=== PATIENT | female | born 2000 | race Caucasian/White ===

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

== ENCOUNTER 2021-06-02 13:58 | Emergency (ER) | payer OTHER ==
[~2021-06-02] VITALS: Ht 154.9 cm; Wt 80.0 kg
[2021-06-02 14:21] VITALS: BP 115/73
[2021-06-02] MEDS ORDERED: predniSONE 20 MG TABLET PO ONE (15:00)
--- NOTE | 2021-06-02 15:14 | PHYS DOC ---
Past History Past Medical History: No Pertinent History, Other Additional Past Medical Histor: 1 [facility] Past Surgical History: No Surgical History Alcohol Use: None General Adult EDM: Chief Complaint: SKIN RASH/ABSCESS HPI: HPI: Patient is a 21-year-old female who presents with itchy rash on her BIlateral forearms, bilateral thighs. Patient states she is been dog sitting and she is afraid the dog has some type of mite. Patient denies pain. States that no one else in the home has a rash. Denies taking anything for symptoms before arrival. Denies medical history. Review of Systems: Review of Systems: Constitutional: Denies fever or chills Eyes: Denies change in visual acuity HENT: Denies nasal congestion or sore throat Respiratory: Denies cough or shortness of breath Cardiovascular: Denies chest pain or edema GI: Denies abdominal pain, nausea, vomiting, bloody stools or diarrhea : Denies dysuria Musculoskeletal: Denies back pain or joint pain Integument: Reports itchy rash to bilateral forearms and bilateral thighs Neurologic: Denies headache, focal weakness or sensory changes Endocrine: Denies polyuria or polydipsia Lymphatic: Denies swollen glands Psychiatric: Denies depression or anxiety Current Medications: Current Meds: Current Medications Medications (Trade) Dose Ordered Sig/Anny Start Time Stop Time Status Last Admin Dose Admin Hydrocortisone (Cortaid) 1 zunilda TID 06/02/21 15:15 Prednisone (Prednisone) 60 mg 1X ONCE 06/02/21 15:00 06/02/21 15:05 DC 06/02/21 15:08 60 MG Allergies: Allergies: Allergies Coded Allergies Type Severity Reaction Last Updated Verified No Known Drug Allergies 11/05/20 No Physical Exam: PE: Constitutional: Well developed, well nourished, no acute distress, non-toxic appearance. [] HENT: Normocephalic, atraumatic, bilateral external ears normal, oropharynx moist, no oral exudates, nose normal. [] Eyes: PERRLA, EOMI, conjunctiva normal, no discharge. [] Neck: Normal range of motion, no tenderness, supple, no stridor. [] Cardiovascular:Heart rate regular rhythm, no murmur [] Lungs & Thorax: Bilateral breath sounds clear to auscultation [] Abdomen: Bowel sounds normal, soft, no tenderness, no masses, no pulsatile masses. [] Skin: Red, raised, pruritic rash to bilateral forearms and bilateral thighs Back: No tenderness, no CVA tenderness. [] Extremities: No tenderness, no cyanosis, no clubbing, ROM intact, no edema. [] Neurologic: Alert and oriented X 3, normal motor function, normal sensory function, no focal deficits noted. [] Psychologic: Affect normal, judgement normal, mood normal. [] Current Patient Data: Vital Signs: Vital Signs Date Time Temp Pulse Resp B/P (MAP) Pulse Ox O2 Delivery O2 Flow Rate FiO2 06/02/21 14:21 98.2 94 16 115/73 98 Room Air EKG: EKG: [] Radiology/Procedures: Radiology/Procedures: [] Heart Score: C/O Chest Pain: No Risk Factors: Risk Factors: DM, Current or recent (<one month) smoker, HTN, HLP, family history of CAD, obesity. Risk Scores: Score 0 - 3: 2.5% MACE over next 6 weeks - Discharge Home Score 4 - 6: 20.3% MACE over next 6 weeks - Admit for Clinical Observation Score 7 - 10: 72.7% MACE over next 6 weeks - Early Invasive Strategies Course & Med Decision Making: Course & Med Decision Making Pertinent Labs and Imaging studies reviewed. (See chart for details) [] 21-year-old female presents with pruritic rash on bilateral forearms and thighs. Patient states that she has been dog sitting and she is afraid the dog is infested with mites. Denies any other exposure. Instructed to take Benadryl to treat symptoms. Patient also given 60 mg of prednisone. Patient also given hydrocortisone cream to apply to affected areas. Patient instructed to follow- up with her PCP. Mario Disclaimer: Mario Disclaimer: This electronic medical record was generated, in whole or in part, using a voice recognition dictation system. Departure Departure: Impression: Primary Impression: Rash Disposition: 01 HOME / SELF CARE / HOMELESS Condition: STABLE Referrals: PCP,UNKNOWN (PCP) Patient Instructions: Rash, [id number] Additional Instructions: You are seen in the emergency room for a itchy rash to your arms and legs. Take Benadryl at home to treat symptoms. We gave you prednisone and hydrocortisone cream to apply to affected areas. Please follow-up with your PCP if symptoms do not resolve. Return emergency room if you have worsening symptoms or concerns EMERGENCY DEPARTMENT GENERAL DISCHARGE INSTRUCTIONS Thank you for coming to [facility] (ED) today and trusting us with you care. We trust that you had a positivie experience in our Emergency Department. If you wish to speak to the department management, you may call the director at [phone]. YOUR FOLLOW UP INSTRUCTIONS ARE FOLLOWS: 1. Do you have a private Doctor? If you do not have a private doctor, please ask for a resource list of physicians or clinics that may be able to assist you with follow up care. 2. The Emergency Physician has interpreted your x-rays. The X-Ray specialist will also review them. If there is a change in the findings, you will be notified in 48 hours when at all possible. 3. A lab test or culture has been done, your results will be reviewed and you will be notified if you need a change in treatment. ADDITIONAL INSTRUCTIONS AND INFORMATION: 1. Your care today has been supervised by a physician who is specially trained in emergency care. Many problems require more than one evaluation for a complete diagnosis and treatment. We recommend that you schedule your follow up appointment as recommended to ensure complete treatment of you illness or injury. If you are unable to obtain follow up care and continue to have a problem, or if your condition worsens, we recommend that you return to the ED. 2. We are not able to safely determine your condition over the phone nor are we able to give sound medical advice over the phone. For these safety reasons, if you call for medical advice we will ask you to come to the ED for further evaluation. 3. If you have any questions regarding these discharge instructions please call the ED at [phone]. SAFETY INFORMATION: In the interest of safety, wellness, and injury prevention; we encourage you to wear your sealbelt, if you smoke; quite smoking, and we encourage family to use a protective helmet for bicycling and other sporting events that present an increased risk for head injury. IF YOUR SYMPTOMS WORSEN OR NEW SYMPTOMS DEVELOP, OR YOU HAVE CONCERNS ABOUT YOUR CONDITION; OR IF YOUR CONDITION WORSENS WHILE YOU ARE WAITING FOR YOUR FOLLOW UP APPOINTMENT; EITHER CONTACT YOUR PRIMARY CARE DOCTOR, THE PHYSICIAN WHOSE NAME AND NUMBER YOU WERE Victorina RAYO, OR RETURN TO THE ED IMMEDIATELY. VÍCTOR URIBE APRN Jun 02, 2021 15:13
[2021-06-02] MEDS ORDERED: HYDROCORTISONE 1% TOPICAL OINTMENT 30GM TUBE. TP SCH (15:15)
== END 2021-06-02 15:24 | disposition home or self-care (01) ==
LOC: ER 13:58
DX: R21 Rash and other nonspecific skin eruption (principal)
CPT/HCPCS: 99283; J7512

== ENCOUNTER 2021-09-11 15:54 | Emergency (ER) | payer OTHER ==
[~2021-09-11] VITALS: Ht 154.9 cm; Wt 83.1 kg
[2021-09-11 16:34] VITALS: BP 112/86
[2021-09-11 17:13] LABS: BASO # 0.1 x10^3/uL (0.0-0.2); BASO % 1 % (0-3); EOS # 0.1 x10^3/uL (0.0-0.7); EOS % 2 % (0-3); HEMATOCRIT 42.7 % (36.0-47.0); HEMOGLOBIN 14.1 g/dL (12.0-15.5); LYMPH # 2.9 x10^3/uL (1.0-4.8); LYMPH % 40 % (24-48); MEAN CORPUSCULAR HEMOGLOBIN 28 pg (25-35); MEAN CORPUSCULAR HGB CONC 33 g/dL (31-37); MEAN CORPUSCULAR VOLUME 85 fL (79-100); MONO # 0.3 x10^3/uL (0.0-1.1); MONO % 4 % (0-9); NEUT # 3.8 x10^3uL (1.8-7.7); NEUT % 53 % (31-73); PLATELET COUNT 205 x10^3/uL (140-400); RED BLOOD COUNT 5.01 x10^6/uL (3.50-5.40); RED CELL DISTRIBUTION WIDTH 14.7 % (11.5-14.5); WHITE BLOOD COUNT 7.1 x10^3/uL (4.0-11.0)
[2021-09-11 17:23] LABS: GFR 70.7; POTASSIUM 3.5 mmol/L (3.5-5.1)
--- NOTE | 2021-09-11 17:25 | PHYS DOC ---
Past History Past Medical History: No Pertinent History, Other Additional Past Medical Histor: 1 misc (VEDA GARRETT) Past Surgical History: No Surgical History (VEDA GARRETT) Alcohol Use: None (VEDA GARRETT) General Adult EDM: Chief Complaint: LOWER EXT PAIN HPI: HPI: Patient is a 21 year old female who presents with greater than 4-week history of left calf pain. She rates her pain 4/10 intermittent. Patient states that her pain is worse when she walks quickly or jogs. She also reports that it is "broken out." Patient denies swelling, erythema, chest pain, shortness of breath. Patient also denies recent surgery, immobilization, travel and history of blood clots. (VEDA GARRETT) Review of Systems: Review of Systems: 12 systems reviewed. ROS negative except as mentioned in HPI. (VEDA GARRETT) Allergies: Allergies: Allergies Coded Allergies Type Severity Reaction Last Updated Verified No Known Drug Allergies 11/05/20 No (VEDA GARRETT) Physical Exam: PE: Constitutional: Well developed, well nourished, no acute distress, non-toxic appearance. Cardiovascular: Heart rate regular rhythm, no murmur. Lungs & Thorax: Bilateral breath sounds clear to auscultation. Skin: Warm, dry, no erythema, no rash. Extremities: No tenderness, no unilateral swelling, no cyanosis, no clubbing, ROM intact, no edema. (VEDA GARRETT) Current Patient Data: Labs: Laboratory Tests Test 09/11/21 16:56 White Blood Count 7.1 x10^3/uL (4.0-11.0) Red Blood Count 5.01 x10^6/uL (3.50-5.40) Hemoglobin 14.1 g/dL (12.0-15.5) Hematocrit 42.7 % (36.0-47.0) Mean Corpuscular Volume 85 fL (79-100) Mean Corpuscular Hemoglobin 28 pg (25-35) Mean Corpuscular Hemoglobin Concent 33 g/dL (31-37) Red Cell Distribution Width 14.7 % (11.5-14.5) H Platelet Count 205 x10^3/uL (140-400) Neutrophils (%) (Auto) 53 % (31-73) Lymphocytes (%) (Auto) 40 % (24-48) Monocytes (%) (Auto) 4 % (0-9) Eosinophils (%) (Auto) 2 % (0-3) Basophils (%) (Auto) 1 % (0-3) Neutrophils # (Auto) 3.8 x10^3uL (1.8-7.7) Lymphocytes # (Auto) 2.9 x10^3/uL (1.0-4.8) Monocytes # (Auto) 0.3 x10^3/uL (0.0-1.1) Eosinophils # (Auto) 0.1 x10^3/uL (0.0-0.7) Basophils # (Auto) 0.1 x10^3/uL (0.0-0.2) Vital Signs: Vital Signs Date Time Temp Pulse Resp B/P (MAP) Pulse Ox O2 Delivery O2 Flow Rate FiO2 09/11/21 16:34 98.0 79 16 112/86 (95) 98 Room Air (VEDA GARRETT) Heart Score: C/O Chest Pain: No (VEDA GARRETT) Course & Med Decision Making: Course & Med Decision Making Pertinent Labs and Imaging studies reviewed. (See chart for details) Patient wells score for DVT is 0. D-dimer ordered to rule out DVT. Addition blood work drawn to evaluate for electrolyte abnormality. Patient lab work is largely unremarkable. Patient will be treated for muscle strain. She is instructed to follow-up with her primary care provider should her symptoms continue. Patient understands and is agreeable to discharge plan. (VEDA GARRETT) Dragon Disclaimer: Dragjalen Disclaimer: This electronic medical record was generated, in whole or in part, using a voice recognition dictation system. (VEDA GARRETT) Departure Departure: Impression: Primary Impression: Strain of right calf muscle Disposition: HOME / SELF CARE / HOMELESS Condition: STABLE Referrals: JOSEPH TONG DO, MPH (PCP) Patient Instructions: Muscle Strain, [id number] Additional Instructions: Your labwork did not show significant abnormalities today. Be sure to rest your left leg and stretch often. You may follow up with your primary doctor if you symptoms persist. As discussed, you may need a referral to a specialist if your symptoms do not resolve. Please return to the emergency department if your pain becomes unmanageable at home or you develop new symptoms (especially swelling to the left leg only, warmth to touch, increased redness). Attending Signature Attending Signature I have participated in the care of this patient and I have reviewed and agree with all pertinent clinical information above including history, exam, and recommendations. (LUIS SANDOVAL MD) VEDA GARRETT Sep 11, 2021 17:25 LUIS SANDOVAL MD Sep 16, 2021 03:36
[2021-09-11 17:26] LABS: ALBUMIN 4.7 g/dL (3.4-5.0); ALBUMIN/GLOBULIN RATIO 1.3 (1.0-1.7); TOTAL BILIRUBIN 0.5 mg/dL (0.2-1.0); TOTAL PROTEIN 8.4 g/dL (6.4-8.2)
== END 2021-09-11 18:49 | disposition home or self-care (01) ==
LOC: ER 15:54
DX: S86.811A Strain of other muscle(s) and tendon(s) at lower leg level, right leg, initial encounter (principal); X58.XXXA Exposure to other specified factors, initial encounter; Y93.89 Activity, other specified; Y92.89 Other specified places as the place of occurrence of the external cause; Y99.8 Other external cause status
CPT/HCPCS: 36415; 80053; 85025; 85379; 99283

== ENCOUNTER 2021-09-21 10:00 | Emergency (ER) | payer OTHER ==
[~2021-09-21] VITALS: Ht 157.5 cm; Wt 83.2 kg
[2021-09-21 11:36] LABS: BILIRUBIN,URINE NEG (NEG); CLARITY,URINE CLEAR; COLOR,URINE YELLOW; GLUCOSE,URINE NEG (NEG); NITRITE,URINE NEG (NEG); UROBILINOGEN,URINE 0.2 mg/dL (0.2 mg/dL)
[2021-09-21 11:37] LABS: BACTERIA,URINE 0 /HPF (0-FEW); RBC,URINE OCC /HPF (0-2); SQUAMOUS EPITHELIAL CELL,UR MOD /LPF
[2021-09-21 11:55] VITALS: BP 102/61
--- NOTE | 2021-09-21 12:01 | PHYS DOC ---
Past History Past Medical History: No Pertinent History, Other Additional Past Medical Histor: 1 misc (CLARIBEL MARTINEZ APRN) Past Surgical History: No Surgical History (CLARIBEL MARTINEZ APRN) Alcohol Use: None (CLARIBEL MARTINEZ APRN) General Adult EDM: Chief Complaint: ABDOMINAL PAIN HPI: HPI: Patient is a 21-year-old female who presents to the emergency department for right flank, suprapubic abdominal pain that she describes as a cramping pain. She rates it 5 out of 10. She reports that she vomited 2 times last night. She also reports that when she urinated today she noticed pink-tinged bleeding when she wiped. She is reporting dysuria, urinary frequency and urgency. She is also reporting diarrhea. She states that her last menstrual period was September 14, she is unsure if she is . She denies any fevers or lightheadedness. She denies saturating any pads with her vaginal bleeding. She is G3, P1. (CLARIBEL MARTINEZ APRN) Review of Systems: Review of Systems: Constitutional: See HPI GI: See HPI : See HPI Musculoskeletal: See HPI (CLARIBEL MARTINEZ APRN) Allergies: Allergies: Allergies Coded Allergies Type Severity Reaction Last Updated Verified No Known Drug Allergies 11/05/20 No (CLARIBEL MARTINEZ APRN) Physical Exam: PE: Constitutional: Well developed, well nourished, no acute distress, non-toxic appearance. [] HENT: Normocephalic, atraumatic, bilateral external ears normal, oropharynx moist, no oral exudates, nose normal. [] Eyes: PERRL, EOMI, conjunctiva normal, no discharge. [] Neck: Normal range of motion, no stridor Cardiovascular:Heart rate regular rhythm, no murmur [] Lungs & Thorax: Bilateral breath sounds clear to auscultation [] Abdomen: Bowel sounds normal, soft, tenderness with palpation to suprapubic region of abdomen, no guarding, no rigidity, no masses, no pulsatile masses. [] Skin: Warm, dry, no erythema, no rash. [] Back: No tenderness, right-sided CVA tenderness. [] Extremities: No tenderness, no cyanosis, no clubbing, ROM intact, no edema. [] Neurologic: Alert and oriented X 3, normal motor function, normal sensory function, no focal deficits noted. [] Psychologic: Affect normal, judgement normal, mood normal. [] (CLARIBEL MARTINEZ APRN) Current Patient Data: Labs: Laboratory Tests Test 09/21/21 10:47 09/21/21 10:58 Urine Collection Type Unknown Urine Color Yellow Urine Clarity Clear Urine pH 6.5 Urine Specific [place] 1.015 Urine Protein Neg (NEG-TRACE) Urine Glucose (UA) Neg mg/dL (NEG) Urine Ketones (Stick) Neg mg/dL (NEG) Urine Blood Neg (NEG) Urine Nitrite Neg (NEG) Urine Bilirubin Neg (NEG) Urine Urobilinogen Dipstick 0.2 mg/dL (0.2 mg/dL) Urine Leukocyte Esterase Neg (NEG) Urine RBC Occ /HPF (0-2) Urine WBC 1-4 /HPF (0-4) Urine Squamous Epithelial Cells Mod /LPF Urine Bacteria 0 /HPF (0-FEW) POC Urine HCG, Qualitative hcg negative (Negative) Vital Signs: Vital Signs Date Time Temp Pulse Resp B/P (MAP) Pulse Ox O2 Delivery O2 Flow Rate FiO2 09/21/21 10:58 98.4 72 16 110/65 (80) 99 Room Air (CLARIBEL MARTINEZ APRN) EKG: EKG: [] (CLARIBEL MARTINEZ APRN) Radiology/Procedures: Radiology/Procedures: [] (CLARIBEL MARTINEZ APRN) Heart Score: C/O Chest Pain: N/A Risk Factors: Risk Factors: DM, Current or recent (<one month) smoker, HTN, HLP, family history of CAD, obesity. Risk Scores: Score 0 - 3: 2.5% MACE over next 6 weeks - Discharge Home Score 4 - 6: 20.3% MACE over next 6 weeks - Admit for Clinical Observation Score 7 - 10: 72.7% MACE over next 6 weeks - Early Invasive Strategies (CLARIBEL MARTINEZ APRN) Course & Med Decision Making: Course & Med Decision Making Pertinent Labs and Imaging studies reviewed. (See chart for details) [] Patient presents to the emergency department for nausea, vomiting, diarrhea, dysuria, urinary frequency and urgency, hematuria. Patient does have suprapubic tenderness with palpation right-sided CVA tenderness. A urinary test was performed that was negative. Patient also had a negative urinalysis. Due to this, blood work was obtained and a CT abdomen and pelvis was performed to rule out any kidney stones. Patient denies any history of kidney stones. Patient informed the ER nurse that she does not want to have blood work or CT performed. Patient is alert and oriented x4 and capable of making her own medical decisions. Patient signed out AGAINST MEDICAL ADVICE, AMA papers signed. Patient is aware of the risks associated with leaving AGAINST MEDICAL ADVICE. Benefits of staying to have evaluation in the ER. (CLARIBEL MARTINEZ APRN) Dragon Disclaimer: Dragon Disclaimer: This electronic medical record was generated, in whole or in part, using a voice recognition dictation system. (CLARIBEL MARTINEZ APRN) Attending Co-Sign The patient was seen and interviewed as well as examined at the bedside. The chart was reviewed. The case was discussed. Agree with the plan of care. (RAYA LICONA DO) Departure Departure: Impression: Primary Impression: Hematuria Qualified Codes: R31.9 - Hematuria, unspecified Disposition: 07 LEFT AGAINST MEDICAL ADVICE Condition: STABLE Referrals: JOSEPH TONG DO, MPH (PCP) CLARIBEL MARTINEZ APRN Sep 21, 2021 12:01 RAYA LICONA DO Sep 24, 2021 10:27
== END 2021-09-21 12:24 | disposition left against medical advice (07) ==
LOC: ER 10:00
DX: R31.9 Hematuria, unspecified (principal)
CPT/HCPCS: 81001; 81025; 99283-25